=== PATIENT | male | born 2000 | race Caucasian/White ===

== ENCOUNTER 2022-08-14 17:40 | Emergency (ER) | payer MEDICAID, SELFPAY ==
[2022-08-14 17:42] VITALS: BP 199/119; PULSE 90; RESP 18; TEMP 36.2; O2SAT 100; BMI 36.9
[2022-08-14] MEDS: Carbamide Peroxide 15 ML Bottle 5 DRP OTIC (18:33)
[2022-08-14] MEDS: HYDROcodone Bitartrate/Apap 5/325 Tablet PO (20:26)
--- NOTE | 2022-08-14 21:37 | EDS_ITS ---
HPI HPI - URI History of Present Illness Chief Complaint: Ear Problem Informant: patient Onset/Context/Timing Onset: Today Context: Sudden Onset Timing: Continuous Quality: Crackling Location: Left ear Worsened by: - (Nothing) Relieved by: - (Nothing) Associated Symptoms Associated Symptoms: Positive for Nonproductive cough; Negative for Nasal Congestion, Headache, Sinus Pressure, Myalgias, Nausea, Vomiting, Diarrhea, Shortness of Breath, Chest Pain, Hemoptysis or Productive Cough Narrative Narrative: Patient presents with left ear pain that began approximately 2 hours prior to arrival. Patient states it is constant. Patient states it began rather suddenly. Patient states it feels like there is a crackling in his left ear. Patient states nothing makes it worse and nothing makes it better. Patient admits to some tinnitus in his left ear. Patient admits to a nonproductive cough. Patient states she is currently on an antibiotic for right ear infection. Patient does not know the name of the antibiotic. ROS ROS ED Constitutional Constitutional ED: Denies chills or fever(s) Eyes Eyes: Denies blurry vision or change in vision ENT ENT ED: Reports ear pain left and sore throat Cardiovascular Cardiovascular: Denies chest pain or palpitations Respiratory/Chest Respiratory/Chest: Denies cough or dyspnea Gastrointestinal Gastrointestinal: Denies nausea or vomiting Genitourinary Genitourinary ED: Denies dysuria or hematuria Musculoskeletal Musculoskeletal: Denies back pain or neck pain Integumentary Denies abscess or rash Neurologic Neurologic: Denies headache(s) or weakness Allergic/Immunologic Allergic/Immunologic ED: Denies mouth swelling or urticaria PFSH PFSH Medical History no medical history no medical history Home Medications amoxicillin 875 mg-potassium clavulanate 125 mg tablet 875 mg PO Q12H #20 TABLETS 08/14/22 [Rx Last Taken Unknown] Allergy/AdvReac Type Severity Reaction Status Date / Time cefdinir [From Omnicef] Allergy Rash Verified 08/14/22 17:44 prednisone Allergy Rash Verified 08/14/22 17:44 Family History no significant family his Surgical History no surgical history no surgical history Social History Smoking Status: Never smoker EXAM Physical Exam Const Vital Signs: 08/14/22 17:42 Temperature 97.2 F L Temperature Source Temporal Pulse Rate 90 Respiratory Rate 18 Blood Pressure 199/119 H Blood Pressure Mean 145 Pulse Ox 100 Oxygen Delivery Method Room Air Positive well nourished, well developed and obese General Appearance ED: well developed and NAD Nutritional Appearance: obese HEENT Reports moist mucous membranes HEENT Narrative: The left tympanic membrane is occluded with cerumen. The right tympanic membrane is clear. Neck is supple. Trachea is midline. There is no JVD or lymphadenopathy. Oral mucosa is pink and moist. Oropharynx is clear. Eyes PERRL and EOMs intact bilaterally Neck no lymphadenopathy, supple, no meningeal signs and no JVD Resp normal respiratory effort and clear to auscultation bilaterally Cardio Rate: regular rate Rhythm: regular rhythm Extremity normal to inspection and full ROM Neuro oriented x3, CN's II-XII intact bilaterally and no sensory deficits noted Sensorium / Orientation: alert Motor Exam: strength 5/5 throughout Psych mental status grossly normal MDM MDM MDM Narrative Medical decision making narrative: Debrox was applied to the left ear. The left ear was irrigated. Large amount of cerumen was removed. Patient was still complaining of pain. Patient was given a dose of [place] here. On reevaluation, there is erythema and loss of landmarks of the left tympanic membrane. Because of this, patient will be switched to Augmentin. Patient was instructed to stop his current antibiotic. Patient was instructed to follow-up with his primary care physician in 5 to 7 days. Patient understood and was agreeable with the plan. All questions were answered. Discharge Plan Triage Chief Complaint: Ear Problem ED Provider: Evan Kwong Dx/Rx/DC Orders Clinical Impression: Acute left otitis media, Impacted cerumen of left ear Instructions: ED Cerumen Impaction Treated, ED Otitis Media Antibiotic ... Prescriptions: New amoxicillin-pot clavulanate [amoxicillin-pot clavulanate] 875 MG tablet 875 mg PO Q12H Qty: 20 0RF Primary Care Provider: Care Physician,No Primary Referrals: Matilda Araujo [Non-Staff] - 5-7 Days Care Physician,No Primary [Primary Care Provider] - Disposition Disposition: Home, Self Care
[2022-08-14 21:52] VITALS: BP 145/88; PULSE 98; RESP 16; O2SAT 97
== END 2022-08-14 21:54 | disposition home or self-care (01) ==
PROVIDERS: Emergency Provider Emergency Medicine; Visit Provider Emergency Medicine
DX: H66.92 Otitis media, unspecified, left ear (principal); H61.22 Impacted cerumen, left ear; E66.9 Obesity, unspecified
CPT/HCPCS: 99283; A4216